=== PATIENT | female | born 1975 | race Caucasian/White ===

== ENCOUNTER 2017-01-16 11:35 | Inpatient (IN) | payer BC ==
[2017-01-16] MEDS ORDERED: CLARITIN10 M6 PO (11:54)
[2017-01-16 12:22] LABS: BASO % 0.3 % (0-2); EOS % 1.2 % (0-7); EOSINOPHIL ABSOLUTE COUNT 0.2 tho/cmm (0.0-0.7); HCT-HEMATOCRIT 42.5 % (34.0-49.0); HGB-HEMOGLOBIN 14.5 gm/dl (12.0-15.5); IMMATURE GRANULOCYTES ABSOLUTE 0.06 tho/cmm (0-0.03); IMMATURE GRANULOCYTES PERCENT 0.4 % (0-0.3); LYMPH % 13.3 % (20-45); LYMPH ABSOLUTE COUNT 1.8 tho/cmm (0.8-4.5); MCH (MEAN CORPUSCULAR HGB) 30.2 pg (28.0-32.0); MCHC MEAN CORPUSCULAR HGB CONC 34.1 % (32.0-36.0); MCV (MEAN CELL VOLUME) 88.5 fl (82.0-96.0); MEAN PLATELET VOLUME 10.2 cmc (9.4-12.4); MONO % 6.8 % (0-12); MONOCYTE ABSOLUTE COUNT 0.9 tho/cmm (0.0-1.2); NEUTROPHIL ABSOLUTE COUNT 10.6 tho/cmm (1.6-8.0); NEUTROPHIL-AUTOMATED 10.6 tho/cmm (1.6-8.0); PLATELET COUNT 256 tho/cmm (150-450); RED CELL DISTRIBUTION WIDTH 12.7 % (12.4-16.4); WHITE BLOOD COUNT 13.6 tho/cmm (4.0-10.0)
[2017-01-16 12:26] LABS: INR 1.2 INR (0.9-1.1); PROTHROMBIN TIME 14.3 SECONDS (9.0-13.6)
[2017-01-16 12:44] LABS: ANION GAP 15 mmol/L (0-20); BLOOD UREA NITROGEN 12 mg/dl (6-24); CALCIUM 8.7 mg/dl (8.5-10.5); CARBON DIOXIDE-VENOUS 24 mmol/L (22-32); CHLORIDE 104 mmol/l (96-110); GLUCOSE 116 mg/dL (70-110); POTASSIUM 3.9 mmol/L (3.7-5.1); SODIUM 139 mmol/L (135-145); eGFR VALUE FOR BLACK >90 mL/Min
[2017-01-16 12:49] LABS: CREATININE 0.85 mg/dl (0.50-1.10)
[2017-01-16 14:05] LABS: ALB/GLOB RATIO 0.7 (0.8-2.0); ALBUMIN 3.4 g/dl (3.5-5.0); ALKALINE PHOSPHATASE 68 U/L (33-138); ALT/SGPT 35 U/L (12-78); AST/SGOT 28 U/L (10-40); BILIRUBIN,DIRECT <0.1 mg/dl (0.0-0.3); BILIRUBIN,INDIRECT 0.2 mg/dL (0.0-1.0); BILIRUBIN,TOTAL 0.3 mg/dl (0-1.5)
--- NOTE | 2017-01-16 20:28 | NUR ---
VIRTUAL CARE NOTE: PT. IN BED. STATES PAIN IS ABOUT A 1 OUT OF 10 AND OK. DENIES ANY NEEDS OR QUESTIONS AT THIS TIME. INSTRUCTED TO CALL FOR FUTURE NEEDS. STATES VERBAL UNDERSTANDING.
--- NOTE | 2017-01-17 21:15 | NUR ---
VIRTUAL CARE NOTE: ASSESSMENT DEFERRED. PT. SLEEPING.
[2017-01-18] MEDS ORDERED: XARELTO15 M1 PO (10:38)
[2017-01-18] MEDS ORDERED: TYLENOL325 M2 (10:39)
[2017-01-18] MEDS ORDERED: XARELTO20 M1 PO (10:41)
== END 2017-01-18 12:41 | DRG 299 ==
LOC: EDMED 11:35 → EMR2 14:59 → 5WD 17:13
PROVIDERS: Emergency Medicine; ADMIT Hospitalist
PROC: 5A09357 Assistance with Respiratory Ventilation, Less than 24 Consecutive Hours, Continuous Positive Airway Pressure (ICD-10-PCS; principal; 2017-01-16)
DX: I82.402 Acute embolism and thrombosis of unspecified deep veins of left lower extremity (principal); I26.99 Other pulmonary embolism without acute cor pulmonale; Z68.41 Body mass index [BMI] 40.0-44.9, adult; R03.0 Elevated blood-pressure reading, without diagnosis of hypertension; R79.89 Other specified abnormal findings of blood chemistry; E66.9 Obesity, unspecified; J30.2 Other seasonal allergic rhinitis; S92.355A Nondisplaced fracture of fifth metatarsal bone, left foot, initial encounter for closed fracture; W18.09XA Striking against other object with subsequent fall, initial encounter
CPT/HCPCS: J1650; J7030; Q9967